=== PATIENT | male | born 1970 | race Caucasian/White ===

== ENCOUNTER 2024-11-20 16:14 | Emergency (ER) | payer BC, MEDICAID ==
[~2024-11-20] VITALS: Ht 177.8 cm; Wt 100.0 kg
[2024-11-20 16:16] VITALS: O2SAT 99
[2024-11-20 16:24] VITALS: BP 166/104; PULSE 70; RESP 14; TEMP 36.7; O2SAT 100
== END 2024-11-20 19:40 | disposition home or self-care (01) ==
LOC: ER 16:14
DX: R07.81 Pleurodynia (principal); I10 Essential (primary) hypertension; Z79.899 Other long term (current) drug therapy
CPT/HCPCS: 71101; 99283

== ENCOUNTER 2025-07-19 05:32 | Inpatient (IN) | payer BC, MEDICAID ==
[~2025-07-19] VITALS: Ht 175.3 cm; Wt 102.1 kg
[2025-07-19 06:02] LABS: HEMATOCRIT. 47.1 % (42.0-52.0); HEMOGLOBIN. 15.5 g/dL (14.0-18.0); MEAN PLATELET VOLUME 9.4 fl (7.4-10.4); PLATELET 196 x1000/uL (130-400); RED BLOOD CELL COUNT 5.28 mill/uL (4.7-6.1); RED CELL DISTRIBUTION WIDTH 13.5 % (11.6-14.6)
[2025-07-19] MEDS: ONDANSETRON HCL 4MG/2ML INJ IV ONE (06:10)
[2025-07-19] MEDS: MORPHINE SULFATE 4 MG/ML INJ (FOR IV/IM USE) IV ONE ×2 (06:11→06:51)
[2025-07-19 06:23] LABS: CREATININE 1.1 mg/dL (0.6-1.3); UREA NITROGEN BLOOD 9 mg/dL (9-23)
[2025-07-19 06:25] LABS: ASPARTATE AMINOTRANSFERASE 66 IU/L (<34); BILIRUBIN DIRECT 0.3 mg/dL (<=3.0)
[2025-07-19 06:26] LABS: BILIRUBIN TOTAL 0.8 mg/dL (0.1-1.0); PROTEIN TOTAL 7.8 g/dL (6.0-8.3)
[2025-07-19] MEDS: LACTATED RINGERS 1,000 ML IV SCH ×2 (06:45→20:40)
[2025-07-19 07:07] LABS: MONOCYTES % MANUAL 7.0 % (2.0-8.0); NEUTROPHILS % MANUAL 93.0 % (45.0-75.0)
[2025-07-19 07:08] LABS: PLATELET ESTIMATE NORMAL
[2025-07-19 07:10] LABS: LYMPHOCYTES % MANUAL 0.0 % (20.0-50.0)
[2025-07-19 07:20] LABS: CLARITY URINE CLEAR (CLEAR); COLOR URINE DARK YELLOW (YELLOW); GLUCOSE URINE 1+ (NEGATIVE); KETONES URINE NEGATIVE (NEGATIVE); LEUKOCYTE ESTERASE URINE NEGATIVE (NEGATIVE); NITRITE URINE NEGATIVE (NEGATIVE); OCCULT BLOOD URINE NEGATIVE (NEGATIVE); PH URINE 5.0 (4.5-8.0); PROTEIN URINE 1+ (NEGATIVE); SPECIFIC GRAVITY URINE 1.027 (1.005-1.030); UROBILINOGEN URINE 1.0 E.U./dL (0.2-1.0)
[2025-07-19] MEDS ORDERED: DOCUSATE SODIUM 100MG CAPSULE PO PRN (07:45)
[2025-07-19] MEDS ORDERED: GUAIFENESIN 200MG/10ML SUGAR FREE UDC PO PRN (07:45)
[2025-07-19 08:03] LABS: CALCIUM OXALATE CRYSTALS URINE 1+ /lpf; WBC URINE 0-2 /hpf (0-2)
[2025-07-19 08:04] LABS: RBC URINE NONE SEEN /hpf (0-2)
[2025-07-19 08:05] LABS: MUCUS URINE 1+ /lpf (NONE/TRACE)
[2025-07-19 08:08] LABS: SQUAMOUS EPITHELIAL CELL URINE NONE SEEN /lpf (RARE/1+)
[2025-07-19 08:10] LABS: BACTERIA URINE NONE SEEN
[2025-07-19] MEDS: POTASSIUM CHLORIDE 20MEQ/PACKET PO NR (08:39)
[2025-07-19 08:43] LABS: TRIGLYCERIDE 100 mg/dL (0-150)
[2025-07-19 08:44] LABS: LDL CHOLESTEROL 133 mg/dL (5-100)
[2025-07-19 08:45] LABS: PHOSPHORUS 3.1 mg/dL (2.5-4.9)
[2025-07-19] MEDS: HYDRALAZINE 20MG/ML VIAL IV PRN (08:45)
[2025-07-19 08:47] LABS: T4 FREE 0.99 ng/dL (0.89-1.76)
[2025-07-19] MEDS: MORPHINE SULFATE 2 MG/ML INJ (NOT FOR IM USE) IV PRN (08:54)
[2025-07-19] MEDS: ONDANSETRON HCL 4MG/2ML INJ IV PRN (09:19)
[2025-07-19] MEDS: CLONIDINE 0.1MG TABLET PO PRN (09:30)
[2025-07-19] MEDS: LABETALOL 5MG/ML 4ML INJ IV NR (10:14)
[2025-07-19] MEDS: LORAZEPAM 0.5MG TABLET PO PRN (10:37)
[2025-07-19] MEDS: AMLODIPINE 10MG TABLET PO SCH (10:37)
[2025-07-19] MEDS: ACETAMINOPHEN 325MG TABLET PO PRN (10:43)
[2025-07-19 11:00] VITALS: BP 193/124; PULSE 71; RESP 19; TEMP 36.3624
[2025-07-19] MEDS ORDERED: HYDROMORPHONE HCL/PF 2MG/ML INJ IM PRN (11:00)
[2025-07-19] MEDS ORDERED: NALOXONE HCL 0.4MG/ML VIAL IV PRN (11:30)
[2025-07-19] MEDS ORDERED: HYDROMORPHONE HCL/PF 1MG/ML INJ IV PRN (11:30)
[2025-07-19 12:00] VITALS: BP 193/124; PULSE 71; RESP 20; TEMP 36.3; O2SAT 98
[2025-07-19] MEDS: HYDROMORPHONE HCL/PF 2MG/ML INJ IV PRN (13:39)
[2025-07-19 16:00] VITALS: BP 161/118; PULSE 68; RESP 18; TEMP 36.2; O2SAT 98
[2025-07-19 20:00] VITALS: BP 181/129; PULSE 125; RESP 18; TEMP 36.6; O2SAT 97
[2025-07-19] MEDS: HYDRALAZINE 10 MG in SODIUM CHLORIDE 0.9% 49.5 ML IV PRN (21:04)
[2025-07-20] VITALS: BP 154/106; PULSE 129; RESP 18; TEMP 36.9; O2SAT 100
[2025-07-20 04:00] VITALS: BP 151/105; PULSE 109; RESP 18; TEMP 36.8; O2SAT 98
[2025-07-20 08:00] VITALS: BP 168/117; PULSE 96; RESP 19; TEMP 35.1; O2SAT 100
[2025-07-20 10:21] LABS: HEMATOCRIT. 51.3 % (42.0-52.0); HEMOGLOBIN. 16.4 g/dL (14.0-18.0); MEAN PLATELET VOLUME 9.6 fl (7.4-10.4); PLATELET 184 x1000/uL (130-400); RED BLOOD CELL COUNT 5.70 mill/uL (4.7-6.1); RED CELL DISTRIBUTION WIDTH 14.3 % (11.6-14.6)
[2025-07-20 10:38] LABS: CREATININE 1.2 mg/dL (0.6-1.3)
[2025-07-20 10:39] LABS: UREA NITROGEN BLOOD 17 mg/dL (9-23)
[2025-07-20 11:40] LABS: *AMPHETAMINES SCREEN URINE NEGATIVE (NEGATIVE); *BARBITURATES SCREEN URINE NEGATIVE (NEGATIVE); *BENZODIAZEPINES SCREEN URINE NEGATIVE (NEGATIVE); *COCAINE SCREEN URINE NEGATIVE (NEGATIVE); CANNABINOID URINE SCREEN NEGATIVE (NEGATIVE); ECSTASY MDMA SCREEN URINE NEGATIVE (NEGATIVE); METHADONE URINE SCREEN NEGATIVE (NEGATIVE); OPIATES URINE SCREEN NEGATIVE (NEGATIVE); PHENCYCLIDINE URINE SCREEN NEGATIVE (NEGATIVE)
[2025-07-20 12:00] VITALS: BP 149/111; PULSE 129; RESP 18; TEMP 35.8; O2SAT 100
[2025-07-20 14:41] LABS: BAND% 17.0 % (1.0-6.0); LYMPHOCYTES % MANUAL 7.0 % (20.0-50.0); MONOCYTES % MANUAL 8.0 % (2.0-8.0); NEUTROPHILS % MANUAL 68.0 % (45.0-75.0); PLATELET ESTIMATE NORMAL
[2025-07-20 16:00] VITALS: BP 161/116; PULSE 113; RESP 19; TEMP 35.4; O2SAT 96
[2025-07-20] MEDS: ACETAMINOPHEN 325MG TABLET PO PRN (17:09)
[2025-07-20] MEDS: CEFTRIAXONE 1GM/50ML 50 ML IV SCH (18:57)
[2025-07-20] MEDS: LOSARTAN 50 MG TABLET PO SCH (19:09)
[2025-07-20 20:00] VITALS: BP 157/106; PULSE 126; RESP 18; TEMP 36.2; O2SAT 97
[2025-07-20] MEDS: CLONIDINE 0.1MG TABLET PO SCH (21:51)
[2025-07-20] MEDS ORDERED: METOPROLOL TARTRATE 5MG/5ML VIAL IV ONE (22:30)
[2025-07-20] MEDS: METOPROLOL TARTRATE 25MG TABLET PO NR (22:51)
[2025-07-21] VITALS: BP 130/94; PULSE 120; RESP 19; TEMP 36.8; O2SAT 96
[2025-07-21 04:00] VITALS: BP 119/86; PULSE 84; RESP 17; TEMP 36.3; O2SAT 95
[2025-07-21 07:37] LABS: HEMATOCRIT. 43.5 % (42.0-52.0); HEMOGLOBIN. 14.4 g/dL (14.0-18.0); MEAN PLATELET VOLUME 9.7 fl (7.4-10.4); PLATELET 135 x1000/uL (130-400); RED BLOOD CELL COUNT 4.89 mill/uL (4.7-6.1); RED CELL DISTRIBUTION WIDTH 14.2 % (11.6-14.6)
[2025-07-21 07:41] LABS: CREATININE 1.1 mg/dL (0.6-1.3); UREA NITROGEN BLOOD 25 mg/dL (9-23)
[2025-07-21 08:00] VITALS: BP 160/91; PULSE 110; RESP 18; TEMP 36.8; O2SAT 95
[2025-07-21 12:00] VITALS: BP 144/91; PULSE 126; RESP 18; TEMP 36.4; O2SAT 95
[2025-07-21 16:00] VITALS: BP 137/89; PULSE 144; RESP 18; TEMP 36.7; O2SAT 93
[2025-07-21] MEDS: SODIUM CHLORIDE 0.9% 500 ML IV ONE (19:00)
[2025-07-21 20:00] VITALS: BP 129/84; PULSE 107; RESP 18; TEMP 36.7; O2SAT 95
[2025-07-21] MEDS: DEXT 5%/LACTATED RINGERS 1,000 ML IV SCH (20:54)
[2025-07-21 23:40] LABS: TROPONIN I HIGH SENSITIVITY 61 ng/L (3.0-53)
[2025-07-22] VITALS: BP 140/89; PULSE 120; RESP 20; TEMP 37.7; O2SAT 94
[2025-07-22 04:00] VITALS: BP 180/98; PULSE 113; RESP 18; TEMP 37.2; O2SAT 98
[2025-07-22] MEDS: MORPHINE SULFATE 2 MG/ML INJ (NOT FOR IM USE) IV PRN (06:36)
[2025-07-22 08:00] VITALS: BP 151/108; RESP 16; TEMP 36.6; O2SAT 96
[2025-07-22 08:09] LABS: HEMATOCRIT. 41.5 % (42.0-52.0); HEMOGLOBIN. 13.6 g/dL (14.0-18.0); MEAN PLATELET VOLUME 10.1 fl (7.4-10.4); PLATELET 137 x1000/uL (130-400); RED BLOOD CELL COUNT 4.66 mill/uL (4.7-6.1); RED CELL DISTRIBUTION WIDTH 13.9 % (11.6-14.6)
[2025-07-22 08:26] LABS: CREATININE 0.7 mg/dL (0.6-1.3)
[2025-07-22 08:27] LABS: UREA NITROGEN BLOOD 16 mg/dL (9-23)
[2025-07-22 08:28] LABS: ASPARTATE AMINOTRANSFERASE 57 IU/L (<34)
[2025-07-22 08:29] LABS: BILIRUBIN DIRECT 1.2 mg/dL (<=3.0); BILIRUBIN TOTAL 2.7 mg/dL (0.1-1.0); PROTEIN TOTAL 6.3 g/dL (6.0-8.3)
[2025-07-22 09:03] LABS: HEPATITIS A AB IGM NEGATIVE (Negative); HEPATITIS B CORE AB IGM NEGATIVE (Negative)
[2025-07-22 09:04] LABS: HEPATITIS C AB NON REACTIVE (Neg) (Negative)
[2025-07-22] MEDS: CHLORDIAZEPOXIDE 25MG CAPSULE PO SCH (12:11)
[2025-07-22 12:55] LABS: BAND% 13.0 % (1.0-6.0); LYMPHOCYTES % MANUAL 2.0 % (20.0-50.0); MONOCYTES % MANUAL 8.0 % (2.0-8.0); NEUTROPHILS % MANUAL 77.0 % (45.0-75.0); PLATELET ESTIMATE NORMAL
[2025-07-22] MEDS: SODIUM CHLORIDE 0.9% 500 ML IV ONE (14:30)
[2025-07-22 18:11] LABS: LYMPHOCYTES % MANUAL 4.0 % (20.0-50.0); MONOCYTES % MANUAL 4.0 % (2.0-8.0); NEUTROPHILS % MANUAL 92.0 % (45.0-75.0); PLATELET ESTIMATE NORMAL
[2025-07-22 20:00] VITALS: BP 151/104; RESP 17; TEMP 36.7; O2SAT 97
[2025-07-22 22:31] VITALS: PULSE 81; RESP 21; O2SAT 94
[2025-07-22] MEDS: IPRATROPIUM/ALBUTEROL 0.5-3(2.5)MG/3ML NEB HHN PRN (22:31)
[2025-07-22] MEDS: IOHEXOL-300 100 ML BOTTLE ONE (23:16)
[2025-07-23] VITALS: BP 142/88; PULSE 119; RESP 17; TEMP 37.3; O2SAT 98
[2025-07-23 01:55] LABS: TROPONIN I HIGH SENSITIVITY 26 ng/L (3.0-53)
[2025-07-23 04:00] VITALS: BP 146/96; PULSE 116; RESP 17; TEMP 36.6; O2SAT 92
[2025-07-23 06:53] LABS: HEMATOCRIT. 37.5 % (42.0-52.0); HEMOGLOBIN. 12.4 g/dL (14.0-18.0); MEAN PLATELET VOLUME 9.2 fl (7.4-10.4); PLATELET 186 x1000/uL (130-400); RED BLOOD CELL COUNT 4.23 mill/uL (4.7-6.1); RED CELL DISTRIBUTION WIDTH 13.7 % (11.6-14.6)
[2025-07-23] MEDS: PANTOPRAZOLE SODIUM 40 MG/VIAL IV SCH (07:26)
[2025-07-23 07:44] LABS: CREATININE 0.7 mg/dL (0.6-1.3)
[2025-07-23 07:45] LABS: UREA NITROGEN BLOOD 17 mg/dL (9-23)
[2025-07-23 07:46] LABS: ASPARTATE AMINOTRANSFERASE 30 IU/L (<34); TROPONIN I HIGH SENSITIVITY 22 ng/L (3.0-53)
[2025-07-23 07:47] LABS: BILIRUBIN DIRECT 1.2 mg/dL (<=3.0); BILIRUBIN TOTAL 2.3 mg/dL (0.1-1.0); PHOSPHORUS 1.1 mg/dL (2.5-4.9); PROTEIN TOTAL 6.1 g/dL (6.0-8.3)
[2025-07-23 08:00] VITALS: BP 148/103; PULSE 118; RESP 16; TEMP 36.8; O2SAT 97
[2025-07-23] MEDS: POTASSIUM CHLORIDE 20MEQ TABLET SR PO SCH (09:34)
[2025-07-23 12:00] VITALS: BP 147/93; PULSE 108; RESP 16; TEMP 37.5; O2SAT 92
[2025-07-23] MEDS ORDERED: POTASSIUM PHOSPHATE 30 MMOL in SODIUM CHLORIDE 0.9% 490 ML IV ONE (14:45)
[2025-07-23] MEDS: POTASSIUM PHOSPHATE 30 MMOL in SODIUM CHLORIDE 0.9% 490 ML IV NR (14:57)
[2025-07-23 16:00] VITALS: BP 155/95; PULSE 112; RESP 16; TEMP 37.4; O2SAT 93
[2025-07-23 20:00] VITALS: BP 151/98; PULSE 102; RESP 18; TEMP 36.5; O2SAT 92
[2025-07-23 20:44] LABS: LYMPHOCYTES % MANUAL 4.0 % (20.0-50.0); MONOCYTES % MANUAL 16.0 % (2.0-8.0); NEUTROPHILS % MANUAL 80.0 % (45.0-75.0); PLATELET ESTIMATE NORMAL
[2025-07-23] MEDS: LOSARTAN 50 MG TABLET PO SCH (21:09)
[2025-07-24] VITALS: BP 142/92; PULSE 100; RESP 18; TEMP 36.6; O2SAT 94
[2025-07-24] MEDS: MELATONIN 3MG TABLET PO PRN (01:44)
[2025-07-24] MEDS: MORPHINE SULFATE 2 MG/ML INJ (NOT FOR IM USE) IV NR ×2 (01:44→04:13)
[2025-07-24 04:00] VITALS: BP 163/99; PULSE 110; RESP 18; TEMP 36.7; O2SAT 95
[2025-07-24 07:14] LABS: HEMATOCRIT. 39.0 % (42.0-52.0); HEMOGLOBIN. 13.0 g/dL (14.0-18.0); MEAN PLATELET VOLUME 9.1 fl (7.4-10.4); PLATELET 198 x1000/uL (130-400); RED BLOOD CELL COUNT 4.38 mill/uL (4.7-6.1); RED CELL DISTRIBUTION WIDTH 13.9 % (11.6-14.6)
[2025-07-24 07:36] LABS: CREATININE 0.6 mg/dL (0.6-1.3); UREA NITROGEN BLOOD 15 mg/dL (9-23)
[2025-07-24 07:38] LABS: ASPARTATE AMINOTRANSFERASE 25 IU/L (<34); BILIRUBIN DIRECT 1.7 mg/dL (<=3.0)
[2025-07-24 07:39] LABS: BILIRUBIN TOTAL 2.9 mg/dL (0.1-1.0); PROTEIN TOTAL 5.9 g/dL (6.0-8.3)
[2025-07-24 08:00] VITALS: BP 162/93; PULSE 101; RESP 16; TEMP 36.4; O2SAT 95
[2025-07-24] MEDS: MORPHINE SULFATE 4 MG/ML INJ (FOR IV/IM USE) IV PRN (09:14)
[2025-07-24 12:00] VITALS: BP 156/94; PULSE 104; RESP 16; TEMP 36.6; O2SAT 96
[2025-07-24 13:12] LABS: PHOSPHORUS 1.4 mg/dL (2.5-4.9)
[2025-07-24 16:00] VITALS: BP 153/86; PULSE 96; RESP 18; TEMP 36.4; O2SAT 98
[2025-07-24] MEDS: POTASSIUM PHOSPHATE 30 MMOL in SODIUM CHLORIDE 0.9% 490 ML IV SCH (17:19)
[2025-07-24] MEDS: HYDRALAZINE HCL 25MG TABLET PO SCH (17:20)
[2025-07-24 20:00] VITALS: BP 140/89; PULSE 99; RESP 17; TEMP 36.5; O2SAT 96
[2025-07-24 20:07] LABS: LYMPHOCYTES % MANUAL 7.0 % (20.0-50.0); MONOCYTES % MANUAL 17.0 % (2.0-8.0); NEUTROPHILS % MANUAL 76.0 % (45.0-75.0); PLATELET ESTIMATE NORMAL
[2025-07-25] VITALS: BP 144/96; PULSE 101; RESP 16; TEMP 36.4; O2SAT 95
[2025-07-25] MEDS: HYDROCODONE/ACETAMINOPHEN 5/325MG TABLET PO NR (03:48)
[2025-07-25 04:00] VITALS: BP 130/86; PULSE 97; RESP 16; TEMP 37.6; O2SAT 99
[2025-07-25 06:45] LABS: CREATININE 0.6 mg/dL (0.6-1.3); HEMATOCRIT. 37.5 % (42.0-52.0); HEMOGLOBIN. 12.5 g/dL (14.0-18.0); MEAN PLATELET VOLUME 8.8 fl (7.4-10.4); PLATELET 227 x1000/uL (130-400); RED BLOOD CELL COUNT 4.24 mill/uL (4.7-6.1); RED CELL DISTRIBUTION WIDTH 14.0 % (11.6-14.6)
[2025-07-25 06:46] LABS: UREA NITROGEN BLOOD 14 mg/dL (9-23)
[2025-07-25 06:47] LABS: ASPARTATE AMINOTRANSFERASE 19 IU/L (<34); BILIRUBIN TOTAL 2.9 mg/dL (0.1-1.0)
[2025-07-25 06:48] LABS: BILIRUBIN DIRECT 1.8 mg/dL (<=3.0); PHOSPHORUS 1.7 mg/dL (2.5-4.9)
[2025-07-25 06:54] LABS: PROTEIN TOTAL 5.7 g/dL (6.0-8.3)
[2025-07-25 08:00] VITALS: BP 135/84; PULSE 108; RESP 16; TEMP 36.4; O2SAT 97
[2025-07-25] MEDS: PIPERACILLIN/TAZO 3.375G/50ML 50 ML IV SCH (08:19)
[2025-07-25] MEDS: IOHEXOL-300 100 ML BOTTLE ONE (11:00)
[2025-07-25 12:00] VITALS: BP 134/70; PULSE 75; RESP 16; TEMP 36.3; O2SAT 96
[2025-07-25] MEDS: POTASSIUM PHOSPHATE 30 MMOL in SODIUM CHLORIDE 0.9% 490 ML IV SCH (15:32)
[2025-07-25 16:00] VITALS: BP 150/88; PULSE 107; RESP 16; TEMP 36.6; O2SAT 98
[2025-07-25] MEDS ORDERED: NALOXONE HCL 0.4MG/ML VIAL IV PRN (16:00)
[2025-07-25] MEDS: HYDROCODONE/ACETAMINOPHEN 5/325MG TABLET PO PRN (18:42)
[2025-07-25 20:00] VITALS: BP 134/84; PULSE 88; RESP 17; TEMP 36.3; O2SAT 97
[2025-07-25 21:01] LABS: LYMPHOCYTES % MANUAL 7.0 % (20.0-50.0); MONOCYTES % MANUAL 17.0 % (2.0-8.0); NEUTROPHILS % MANUAL 76.0 % (45.0-75.0); PLATELET ESTIMATE NORMAL
[2025-07-26] VITALS (7 sets, daily range): BP systolic 135–150; BP diastolic 75–96; PULSE 102–113; RESP 12–27; TEMP 35.8–37.2; O2SAT 95–97
[2025-07-26] MEDS: MORPHINE SULFATE 2 MG/ML INJ (NOT FOR IM USE) IV NR (00:35)
[2025-07-26 08:15] LABS: HEMATOCRIT. 38.9 % (42.0-52.0); HEMOGLOBIN. 12.9 g/dL (14.0-18.0); MEAN PLATELET VOLUME 8.9 fl (7.4-10.4); PLATELET 301 x1000/uL (130-400); RED BLOOD CELL COUNT 4.37 mill/uL (4.7-6.1); RED CELL DISTRIBUTION WIDTH 14.0 % (11.6-14.6)
[2025-07-26 08:33] LABS: CREATININE 0.6 mg/dL (0.6-1.3); UREA NITROGEN BLOOD 15 mg/dL (9-23)
[2025-07-26 08:34] LABS: PROTEIN TOTAL 6.2 g/dL (6.0-8.3)
[2025-07-26 08:35] LABS: ASPARTATE AMINOTRANSFERASE 21 IU/L (<34); BILIRUBIN TOTAL 3.3 mg/dL (0.1-1.0)
[2025-07-26] MEDS: FAMOTIDINE 20MG/2ML VIAL IV SCH (09:44)
[2025-07-26] MEDS: ENOXAPARIN 30MG/0.3ML SYR SUBCUT SCH (09:45)
[2025-07-26 10:00] LABS: INR 1.2
[2025-07-26 15:49] LABS: LYMPHOCYTES % MANUAL 5.0 % (20.0-50.0); MONOCYTES % MANUAL 12.0 % (2.0-8.0); NEUTROPHILS % MANUAL 83.0 % (45.0-75.0); PLATELET ESTIMATE NORMAL
[2025-07-26] MEDS: MORPHINE SULFATE 2 MG/ML INJ (NOT FOR IM USE) IV SCH ×2 (17:43→21:07)
[2025-07-27] VITALS (10 sets, daily range): BP systolic 118–138; BP diastolic 84–93; PULSE 92–105; RESP 11–19; TEMP 36.8–37.2; O2SAT 96–99
[2025-07-27 06:39] LABS: CREATININE 0.7 mg/dL (0.6-1.3); UREA NITROGEN BLOOD 13 mg/dL (9-23)
[2025-07-27 06:41] LABS: PHOSPHORUS 2.2 mg/dL (2.5-4.9)
[2025-07-27 06:55] LABS: HEMATOCRIT. 36.4 % (42.0-52.0); HEMOGLOBIN. 12.2 g/dL (14.0-18.0); MEAN PLATELET VOLUME 8.7 fl (7.4-10.4); PLATELET 310 x1000/uL (130-400); RED BLOOD CELL COUNT 4.13 mill/uL (4.7-6.1); RED CELL DISTRIBUTION WIDTH 14.1 % (11.6-14.6)
[2025-07-27] MEDS ORDERED: MEROPENEM 1,000 MG in SODIUM CHLORIDE 0.9% 100 ML IV SCH (12:30)
[2025-07-27] MEDS ORDERED: LOSA50TA41 PO (16:19)
[2025-07-27 21:46] LABS: EOSINOPHILS % MANUAL 1.0 % (0.0-5.0); LYMPHOCYTES % MANUAL 3.0 % (20.0-50.0); MONOCYTES % MANUAL 6.0 % (2.0-8.0); NEUTROPHILS % MANUAL 90.0 % (45.0-75.0)
[2025-07-27 21:47] LABS: PLATELET ESTIMATE NORMAL
== END 2025-07-27 17:36 | disposition short-term general hospital (02) | DRG 871 ==
LOC: ER 05:32 → 7EST 07:09 → EDBEDREQ 07:11 → EDBEDREQTM 07:11 → ENRESERV 09:00 → 5WST 07-22 00:49 → 5EST 07-26 18:19
PROVIDERS: ADMIT Internal Medicine; ATTEND Internal Medicine
DX: A41.9 Sepsis, unspecified organism (principal); K85.91 Acute pancreatitis with uninfected necrosis, unspecified; R18.8 Other ascites; E83.39 Other disorders of phosphorus metabolism; E83.51 Hypocalcemia; I16.0 Hypertensive urgency; E11.65 Type 2 diabetes mellitus with hyperglycemia; D64.9 Anemia, unspecified; K76.0 Fatty (change of) liver, not elsewhere classified; E80.6 Other disorders of bilirubin metabolism; E78.5 Hyperlipidemia, unspecified; E87.6 Hypokalemia; I10 Essential (primary) hypertension; Z79.899 Other long term (current) drug therapy
CPT/HCPCS: 36415; 71045; 74176; 74177; 76700; 80048; 80053; 80061; 80076; 80305; 81003; 82150; 82962; 83036; 83605; 83735; 84100; 84145; 84439; 84443; 84484; 85025; 85379; 86705; 86709; 87340; 93005; 93970; 94070; 94640; 94664; 99285; A4606; A4615; J0360; J0696; J1171; J1308; J1650; J2270; J2405; J2470; J2543; J3490; J7040; J7121; Q9967